=== PATIENT | female | born 2000 | race Caucasian/White ===

== ENCOUNTER 2022-08-31 19:02 | Emergency (ER) | payer SELFPAY ==
[~2022-08-31] VITALS: Ht 170.2 cm; Wt 129.0 kg
[2022-08-31 19:06] VITALS: BP 178/149
[2022-08-31] MEDS ORDERED: IBUPROFEN 600MG TABLET PO ONE (23:45)
[2022-09-01] MEDS ORDERED: METH-653 MT (01:52)
[2022-09-01] MEDS ORDERED: IBUP-2029 MT (01:52)
== END 2022-09-01 02:51 | disposition home or self-care (01) ==
LOC: ER 19:02
DX: S16.1XXA Strain of muscle, fascia and tendon at neck level, initial encounter (principal); S29.012A Strain of muscle and tendon of back wall of thorax, initial encounter; Z88.8 Allergy status to other drugs, medicaments and biological substances; V43.52XA Car driver injured in collision with other type car in traffic accident, initial encounter; Y93.89 Activity, other specified; Y92.488 Other paved roadways as the place of occurrence of the external cause
CPT/HCPCS: 71045; 72040; 72100; 73030; 81025; 99284